=== PATIENT | female | born 1955 | race Caucasian/White ===

== ENCOUNTER 2018-08-26 09:03 | Outpatient (CLI) | payer MEDICARE ==
--- NOTE | 2018-08-26 09:52 | RAD ---
Exam:2 views right knee HISTORY: Osteoarthritis. Pain. COMPARISON: None FINDINGS: Moderate tricompartmental degenerative change. Trace suprapatellar effusion. No fracture or malalignment. IMPRESSION: Moderate tricompartmental degenerative change.
--- NOTE | 2018-08-26 10:11 | BD ---
DEXA BONE DENSITY EXAM: HISTORY: A 63-year-old postmenopausal female for screening. FINDINGS: Lumbar Spine: BMD (g/cm2) L1 0.678 T-Score: -2.8 L2 0.739 T-Score: -2.6 L3 0.871 T-Score: -1.9 L4 0.937 T-Score: -1.1 L1-L4 0.813 T-Score: -2.1 LEFT: Femoral Neck: 0.637 T-Score: -1.7 Total Femur: 0.814 T-Score: -1.1 RIGHT: Femoral Neck: 0.677 T-Score: -1.5 Total Femur: 0.875 T-Score: -0.5 Impression: Osteopenia. This patient has a 10-year WHO fracture risk of a major osteoporotic of 16% and of a hip fracture of 2.2%. POS: [facility]
--- NOTE | 2018-08-26 10:19 | RAD ---
LEFT KNEE TWO VIEWS: HISTORY: Knee pain. FINDINGS: There are arthritic changes of the knee with degenerative osteophytic changes in the lateral compartm ent and minimal spur formation in the medial compartment and patellofemoral compartment. IMPRESSION: Mild to moderate arthritic changes in the knee, slightly more severe in the lateral compartment. POS: [facility]
== END 2018-08-26 09:04 | disposition home or self-care (01) ==
LOC: BICMAMMO 09:03
PROVIDERS: ATTEND Internal Medicine Rheumatology
DX: M81.0 Age-related osteoporosis without current pathological fracture (principal); M17.0 Bilateral primary osteoarthritis of knee; M85.89 Other specified disorders of bone density and structure, multiple sites
CPT/HCPCS: 77080

== ENCOUNTER 2022-10-19 09:58 | Outpatient (CLI) | payer MEDICARE | END 2022-10-19 09:59 | disposition home or self-care (01) | LOC: BICMAMMO 09:58 | PROVIDERS: ATTEND Internal Medicine Rheumatology | DX: M81.0 Age-related osteoporosis without current pathological fracture (principal); M85.88 Other specified disorders of bone density and structure, other site | CPT/HCPCS: 77080 ==

== ENCOUNTER 2024-10-20 10:59 | Outpatient (CLI) | payer MEDICARE | END 2024-10-20 11:00 | disposition home or self-care (01) | LOC: BICMAMMO 10:59 | PROVIDERS: ATTEND Internal Medicine Rheumatology | DX: M81.0 Age-related osteoporosis without current pathological fracture (principal); M85.89 Other specified disorders of bone density and structure, multiple sites | CPT/HCPCS: 77080 ==